=== PATIENT | male | born 1945 | race Caucasian/White ===

== ENCOUNTER 2021-03-27 18:29 | Emergency (ER) | payer MEDICARE ==
--- NOTE | 2021-03-27 18:31 | ERPHSYRPT ---
- History of Present Illness Time Seen by Provider: 03/27/21 18:31 Source: patient Physician History: This is a 75-year-old white male who has a history of hypertension, COPD, gastroesophageal reflux disease and elevated cholesterol who has been taking his medication as prescribed per his report and noticed vertigo/dizziness that began 2 to 3 days ago. Patient denies chest pain. Patient denies shortness of breath. Patient did not hit his head. There are no new to medications. 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 He has not had any fevers chills. He denies nausea vomiting diarrhea. He has no abdominal pain. Timing/Duration: day(s) (2 3 days ago) Severity: moderate Character of Deficits: other (Vertigo) Deficits: decrease ability to walk (Secondary to vertigo) Baseline/Normal Cognition: alert oriented x 3 Current Cognition: alert oriented x 3 Baseline Gait: uses cane (Patient has chronic left knee pain from arthritis. Normally he walks without assistance but in the last 2 to 3 days he has been using the cane) Associated Symptoms: other (Vertigo) Allergies/Adverse Reactions: Penicillins Allergy (Verified 03/27/21 18:49) Rash Home Medications: Atorvastatin Calcium [Lipitor 20MG Tablet] 40 mg PO DAILY 08/09/13 [History] Esomeprazole Magnesium [Nexium] 40 mg PO DAILY 08/09/13 [History] Ezetimibe 10 mg [Zetia 10 MG] 10 mg PO DAILY 08/09/13 [History] Folic Acid 1 mg PO DAILY 08/09/13 [History] Lisinopril 20 mg [Zestril 20 MG] 40 mg PO DAILY 08/09/13 [History] Meloxicam [Mobic] 7.5 mg PO DAILY 08/09/13 [History] Amlodipine Besylate 5 mg [Norvasc 5 mg] 5 mg PO DAILY 03/27/21 [History] Aspirin EC 81 mg [Ecotrin 81 mg] 81 mg PO DAILY 03/27/21 [History] Famotidine [Pepcid] 40 mg PO DAILY 03/27/21 [History] Metformin HCl 500 mg [Glucophage 500 MG] 500 mg PO DAILY 03/27/21 [History] Hx Tetanus, Diphtheria Vaccination/Date Given: Yes Hx Influenza Vaccination/Date Given: No Hx Pneumococcal Vaccination/Date Given: No Travel Risk - International Travel Have you traveled outside of the country in past 3 weeks: No - Coronavirus Screening Are you exhibiting any of the following symptoms?: No Close contact with a COVID-19 positive Pt in past 14-21 Days: No - Review of Systems Constitutional: No Symptoms Eyes: No Symptoms Ears, Nose, & Throat: No Symptoms Respiratory: No Symptoms Cardiac: No Symptoms Abdominal/Gastrointestinal: No Symptoms Genitourinary Symptoms: No Symptoms Musculoskeletal: No Symptoms Skin: No Symptoms Neurological: Dizziness Psychological: No Symptoms Endocrine: No Symptoms Hematologic/Lymphatic: No Symptoms Immunological/Allergic: No Symptoms All Other Systems: Reviewed and Negative - Past Medical History Pertinent Past Medical History: Yes Neurological History: No Pertinent History ENT History: No Pertinent History Cardiac History: High Cholesterol, Hypertension Respiratory History: COPD Endocrine Medical History: No Pertinent History Musculoskeletal History: Arthritis GI Medical History: GERD History: No Pertinent History Psycho-Social History: No Pertinent History Male Reproductive Disorders: No Pertinent History - Past Surgical History Past Surgical History: Yes Neuro Surgical History: No Pertinent History Cardiac: No Pertinent History Respiratory: No Pertinent History Gastrointestinal: No Pertinent History Genitourinary: No Pertinent History Musculoskeletal: Orthopedic Surgery Male Surgical History: No Pertinent History Other Surgical History: DISC SURGERY c-5, left foot spurs removed,right palm of hand sutured - Social History Smoking Status: Former smoker Exposure to second hand smoke: Yes Drug Use: none Patient Lives Alone: No - Nursing Vital Signs Nursing Vital Signs: Initial Vital Signs Temperature 98.2 F 03/27/21 18:37 Pulse Rate 77 03/27/21 18:37 Blood Pressure 173/88 03/27/21 18:37 O2 Sat by Pulse Oximetry 97 03/27/21 18:37 Pain Scale Pain Intensity 0 - [place] Coma Scale Best Eye Response (Carrie): (4) open spontaneously Best Verbal Response (Carrie): (5) oriented Best Motor Response (Carrie): (6) obeys commands Carrie Total: 15 - Physical Exam General Appearance: no apparent distress, alert, anxiety Eye Exam: bilateral eye: normal inspection, PERRL, EOMI, abnormal EOM Ears, Nose, Throat Exam: normal ENT inspection, moist mucous membranes, tonsillar exudate Neck Exam: normal inspection, non-tender, supple Respiratory: normal breath sounds, lungs clear, airway intact, No chest tenderness, No respiratory distress Cardiovascular: regular rate/rhythm, normal heart sounds, normal peripheral pulses Gastrointestinal: soft, normal bowel sounds, No tenderness Rectal Exam: not done Back Exam: normal inspection, normal range of motion, No CVA tenderness, No v ertebral tenderness Extremity Exam: normal inspection, normal range of motion, pelvis stable Mental Status: alert, oriented x 3, 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 When compared to EKG dated February 08, 2018 there are no acute changes.) Ordered Tests: Active Orders 24 hr Category Date Time Status EKG-ER Only STAT Care 03/27/21 19:13 Active NPO (ED) STAT Care 03/27/21 19:14 Active Pulse Oximetry (ED) STAT Care 03/27/21 19:13 Active HEAD WITHOUT CONTRAST [CT] Stat Exams 03/27/21 19:14 Taken CBC W DIFF Stat Lab 03/27/21 20:00 Completed CMP Stat Lab 03/27/21 20:00 Completed ETHYL ALCOHOL Stat Lab 03/27/21 20:00 Completed INFLUENZA A+B ARTI Stat Lab 03/27/21 20:30 Completed Lactic Acid Stat Lab 03/27/21 19:48 Completed MAGNESIUM Stat Lab 03/27/21 20:00 Completed Manual Differential NC Stat Lab 03/27/21 20:00 Completed Bradford Screen Stat Lab 03/27/21 20:00 Completed TROPONIN Q3H Lab 03/27/21 20:00 Completed TROPONIN Q3H Lab 03/27/21 22:15 Ordered TROPONIN Q3H Lab 03/28/21 01:15 Ordered TROPONIN Q3H Lab 03/28/21 04:15 Ordered TROPONIN Q3H Lab 03/28/21 07:15 Ordered UA W/RFX UR CULTURE Stat Lab 03/27/21 20:32 Completed Urine Triage Profile Stat Lab 03/27/21 20:32 Completed Medication Summary Discontinued Medications Generic Name Dose Route Start Last Admin Trade Name Julius PRN Reason Stop Dose Admin Meclizine HCl 25 mg 03/27/21 21:46 Antivert 25 Mg PO 03/27/21 21:47 STAT ONE Lab/Rad Data: Laboratory Result Diagrams 03/27/21 20:00 03/27/21 20:00 Laboratory Results 03/27/21 03/27/21 03/27/21 Range/Units 20:32 20:32 20:30 WBC (4.0-10.5) K/mm3 RBC (4.1-5.6) M/mm3 Hgb (12.5-18.0) gm/dl Hct (42-50) % MCV (78-100) fl MCH (26-32) pg MCHC (32-36) g/dl RDW (11.5-14.0) % Plt Count (150-450) K/mm3 MPV (7.5-11.0) fl Sodium (137-145) mmol/L Potassium (3.5-5.1) mmol/L Chloride (98-107) mmol/L Carbon Dioxide (22-30) mmol/L Anion Gap (5-15) MEQ/L BUN (9-20) mg/dL Creatinine (0.66-1.25) mg/dL Estimated GFR ML/MIN Glucose (74-106) mg/dL Lactic Acid (0.4-2.0) Calcium (8.4-10.2) mg/dL Magnesium (1.6-2.3) mg/dL Total Bilirubin (0.2-1.3) mg/dL AST (17-59) U/L ALT (0-50) U/L Alkaline Phosphatase (38-126) U/L Troponin I (0.000-0.034) ng/mL Serum Total Protein (6.3-8.2) g/dL Albumin (3.5-5.0) g/dL Urine Color YELLOW (YELLOW) Urine Appearance CLEAR (CLEAR) Urine pH 5.0 (5-6) Ur Specific Ingalls 1.027 (1.005-1.025) Urine Protein NEGATIVE (Negative) Urine Ketones NEGATIVE (NEGATIVE) Urine Blood NEGATIVE (0-5) Rick/ul Urine Nitrite NEGATIVE (NEGATIVE) Urine Bilirubin NEGATIVE (NEGATIVE) Urine Urobilinogen NEGATIVE (0-1) mg/dL Ur Leukocyte Esterase NEGATIVE (NEGATIVE) Urine WBC (Auto) NONE (0-5) /HPF Urine RBC (Auto) NONE (0-2) /HPF Urine Mucus (Auto) SLIGHT (NEGATIVE) /HPF Urine Culture Reflexed NO (NO) Urine Glucose NEGATIVE (NEGATIVE) mg/dL Urine Opiates Level NEGATIVE (NEGATIVE) Ur Methadone NEGATIVE (NEGATIVE) Urine Barbiturates NEGATIVE (NEGATIVE) Ur Phencyclidine (PCP) NEGATIVE (NEGATIVE) Urine Amphetamine NEGATIVE (NEGATIVE) U Benzodiazepine Level NEGATIVE (NEGATIVE) Urine Cocaine NEGATIVE (NEGATIVE) Urine Marijuana (THC) NEGATIVE (NEGATIVE) Ethyl Alcohol (0-10) mg/dL Monoscreen (Negative) Influenza Type A Ag NEGATIVE (NEGATIVE) Influenza Type B Ag NEGATIVE (NEGATIVE) 03/27/21 03/27/21 03/27/21 Range/Units 20:00 20:00 20:00 WBC (4.0-10.5) K/mm3 RBC (4.1-5.6) M/mm3 Hgb (12.5-18.0) gm/dl Hct (42-50) % MCV (78-100) fl MCH (26-32) pg MCHC (32-36) g/dl RDW (11.5-14.0) % Plt Count (150-450) K/mm3 MPV (7.5-11.0) fl Sodium 139 (137-145) mmol/L Potassium 4.2 (3.5-5.1) mmol/L Chloride 105 (98-107) mmol/L Carbon Dioxide 23 (22-30) mmol/L Anion Gap 15.0 (5-15) MEQ/L BUN 19 (9-20) mg/dL Creatinine 1.06 (0.66-1.25) mg/dL Estimated GFR > 60.0 ML/MIN Glucose 108 H (74-106) mg/dL Lactic Acid (0.4-2.0) Calcium 9.3 (8.4-10.2) mg/dL Magnesium 2.2 (1.6-2.3) mg/dL Total Bilirubin 0.50 (0.2-1.3) mg/dL AST 30 (17-59) U/L ALT 42 (0-50) U/L Alkaline Phosphatase 86 (38-126) U/L Troponin I 0.050 H* (0.000-0.034) ng/mL Serum Total Protein 7.2 (6.3-8.2) g/dL Albumin 3.8 (3.5-5.0) g/dL Urine Color (YELLOW) Urine Appearance (CLEAR) Urine pH (5-6) Ur Specific Ingalls (1.005-1.025) Urine Protein (Negative) Urine Ketones (NEGATIVE) Urine Blood (0-5) Rick/ul Urine Nitrite (NEGATIVE) Urine Bilirubin (NEGATIVE) Urine Urobilinogen (0-1) mg/dL Ur Leukocyte Esterase (NEGATIVE) Urine WBC (Auto) (0-5) /HPF Urine RBC (Auto) (0-2) /HPF Urine Mucus (Auto) (NEGATIVE) /HPF Urine Culture Reflexed (NO) Urine Glucose (NEGATIVE) mg/dL Urine Opiates Level (NEGATIVE) Ur Methadone (NEGATIVE) Urine Barbiturates (NEGATIVE) Ur Phencyclidine (PCP) (NEGATIVE) Urine Amphetamine (NEGATIVE) U Benzodiazepine Level (NEGATIVE) Urine Cocaine (NEGATIVE) Urine Marijuana (THC) (NEGATIVE) Ethyl Alcohol < 10 (0-10) mg/dL Monoscreen NEGATIVE (Negative) Influenza Type A Ag (NEGATIVE) Influenza Type B Ag (NEGATIVE) 03/27/21 03/27/21 Range/Units 20:00 19:48 WBC 8.7 (4.0-10.5) K/mm3 RBC 4.57 (4.1-5.6) M/mm3 Hgb 14.0 (12.5-18.0) gm/dl Hct 44.4 (42-50) % MCV 97.2 (78-100) fl MCH 30.6 (26-32) pg MCHC 31.5 L (32-36) g/dl RDW 13.2 (11.5-14.0) % Plt Count 457 H (150-450) K/mm3 MPV 8.9 (7.5-11.0) fl Sodium (137-145) mmol/L Potassium (3.5-5.1) mmol/L Chloride (98-107) mmol/L Carbon Dioxide (22-30) mmol/L Anion Gap (5-15) MEQ/L BUN (9-20) mg/dL Creatinine (0.66-1.25) mg/dL Estimated GFR ML/MIN Glucose (74-106) mg/dL Lactic Acid 1.3 (0.4-2.0) Calcium (8.4-10.2) mg/dL Magnesium (1.6-2.3) mg/dL Total Bilirubin (0.2-1.3) mg/dL AST (17-59) U/L ALT (0-50) U/L Alkaline Phosphatase (38-126) U/L Troponin I (0.000-0.034) ng/mL Serum Total Protein (6.3-8.2) g/dL Albumin (3.5-5.0) g/dL Urine Color (YELLOW) Urine Appearance (CLEAR) Urine pH (5-6) Ur Specific Ingalls (1.005-1.025) Urine Protein (Negative) Urine Ketones (NEGATIVE) Urine Blood (0-5) Rick/ul Urine Nitrite (NEGATIVE) Urine Bilirubin (NEGATIVE) Urine Urobilinogen (0-1) mg/dL Ur Leukocyte Esterase (NEGATIVE) Urine WBC (Auto) (0-5) /HPF Urine RBC (Auto) (0-2) /HPF Urine Mucus (Auto) (NEGATIVE) /HPF Urine Culture Reflexed (NO) Urine Glucose (NEGATIVE) mg/dL Urine Opiates Level (NEGATIVE) Ur Methadone (NEGATIVE) Urine Barbiturates (NEGATIVE) Ur Phencyclidine (PCP) (NEGATIVE) Urine Amphetamine (NEGATIVE) U Benzodiazepine Level (NEGATIVE) Urine Cocaine (NEGATIVE) Urine Marijuana (THC) (NEGATIVE) Ethyl Alcohol (0-10) mg/dL Monoscreen (Negative) Influenza Type A Ag (NEGATIVE) Influenza Type B Ag (NEGATIVE) - Progress Progress: improved Progress Note: 03/27/21 22:01 Adequate decision making: Patient is reexamined prior to his discharge to home from an AMA standpoint. Patient's CAT scan of his head without contrast shows no acute intracranial abnormality. I did tell the patient that the patient had an elevated troponin level and I explained to him what back could mean. He realizes and understands that this could be a sign of acute myocardial infarction. Patient is not having any chest pain. There are no findings of acute myocardial infarction on the EKG. Patient states he has complete resolution of his vertigo at this time. He wants to go home. He does not want any further work-up. He agrees to take an Antivert here. He also agrees rest to walk him up and down the branch. Patient states that he needs to go home because his has cancer and he needs to care for her. He does not want any further work-up. He realizes that the best option for him is to be observed in the hospital and repeat labs. However, he is refusing to be admitted or transferred to hospital facility. He understands that his condition may worsen and he could suffer irreversible damage to his heart and even . He will signed the AMA form. - Departure Departure Disposition: AMA Clinical Impression: Vertigo, Elevation of cardiac enzymes Condition: Stable Critical Care Time: Yes Critical Care Time(excluding separately billable procedures): Critical 30-74 mins Referrals: SOHAN REEVES [Primary Care Provider] - Prescriptions: Meclizine HCl 25 mg [Antivert 25 mg] 25 mg PO Q8H PRN #10 tablet PRN Reason: Dizziness
[2021-03-27 18:50] VITALS: BP 173/88; PULSE 77
[2021-03-27 20:31] LABS: Hematocrit 44.4 % (42-50); Mean Cell Volume 97.2 fl (78-100); Mean Corpuscular Hemoglobin 30.6 pg (26-32); Mean Corpuscular Hgb Concent. 31.5 g/dl (32-36); Mean Platelet Volume 8.9 fl (7.5-11.0); Platelet Count 457 K/mm3 (150-450); Red Blood Count 4.57 M/mm3 (4.1-5.6); Red Cell Distribution Width 13.2 % (11.5-14.0); White Blood Count 8.7 K/mm3 (4.0-10.5)
[2021-03-27 20:36] LABS: ALBUMIN 3.8 g/dL (3.5-5.0); ALKALINE PHOSPHATASE 86 U/L (38-126); BLOOD UREA NITROGEN 19 mg/dL (9-20); CHLORIDE 105 mmol/L (98-107); Calcium 9.3 mg/dL (8.4-10.2); Carbon Dioxide 23 mmol/L (22-30); Creatinine 1 1.06 mg/dL (0.66-1.25); EST GLOMERULAR FILTRATION RATE > 60.0 ML/MIN; ETHYL ALCOHOL < 10 mg/dL (0-10); Glucose 108 mg/dL (74-106); MAGNESIUM 2.2 mg/dL (1.6-2.3); Potassium 4.2 mmol/L (3.5-5.1); SGOT/AST 30 U/L (17-59); SGPT/ALT 42 U/L (0-50); SODIUM 139 mmol/L (137-145); Total Protein 7.2 g/dL (6.3-8.2)
[2021-03-27 20:37] LABS: Appearance CLEAR (CLEAR); Bilirubin NEGATIVE (NEGATIVE); Blood NEGATIVE Ery/ul (0-5); Glucose NEGATIVE (NEGATIVE); Ketones NEGATIVE (NEGATIVE); Leukocyte Esterase NEGATIVE (NEGATIVE); Mucus SLIGHT /HPF (NEGATIVE); Nitrite NEGATIVE (NEGATIVE); Protein,Urine Dip NEGATIVE (Negative); Specific Gravity 1.027 (1.005-1.025); Urobilinogen NEGATIVE mg/dL (0-1)
[2021-03-27 20:50] LABS: Amphetamine,Urine NEGATIVE (NEGATIVE); Barbiturate,Urine NEGATIVE (NEGATIVE); Benzodiazepine,Urine NEGATIVE (NEGATIVE); Cocaine,Urine NEGATIVE (NEGATIVE); Methadone,Urine NEGATIVE (NEGATIVE); Opiate,Urine NEGATIVE (NEGATIVE); PCP,Urine NEGATIVE (NEGATIVE); THC,Urine NEGATIVE (NEGATIVE)
[2021-03-27 21:09] LABS: INFLUENZA A NEGATIVE (NEGATIVE); INFLUENZA B NEGATIVE (NEGATIVE)
[2021-03-27] MEDS ORDERED: ANTIVERT 25 MG PO ONE (21:46)
[2021-03-27] MEDS ORDERED: ANTIVERT 25 MG ONE (22:00)
[2021-03-27 22:24] VITALS: O2SAT 95
[2021-03-28 01:21] LABS: Eosinophil 2 % (0.00-3.0); Lymphocytes 26 % (24-44); Monocyte 7 % (0.0-12.0); Neutrophils 65 % (36.-66.); Platelet Estimate NORMAL (NORMAL); Total Cells Counted 100
--- NOTE | 2021-03-28 08:45 | XRAY ---
Indication: Dizziness. Multiple contiguous axial images obtained through the head without contrast. Comparison: None Age-appropriate global atrophy. No acute intracranial hemorrhage, abnormal extra-axial fluid collection, or mass effect. Fourth ventricle is midline without hydrocephalus. Ibarra-white matter differentiation preserved. Bony calvarium intact. 2.4 cm left maxillary sinus polyp/retention cyst and minimal mucosal thickening sphenoid sinus. Remaining paranasal sinuses and mastoid air cells are clear. Impression: Left maxillary sinus polyp/retention cyst and minimal sphenoid sinus disease. Remaining CT head without contrast exam is negative.
== END 2021-03-27 22:26 | disposition home or self-care (01) ==
LOC: ED 18:29
DX: R42 Dizziness and giddiness (principal); R77.8 Other specified abnormalities of plasma proteins; I10 Essential (primary) hypertension; J44.9 Chronic obstructive pulmonary disease, unspecified; K21.9 Gastro-esophageal reflux disease without esophagitis; E78.00 Pure hypercholesterolemia, unspecified; Z79.899 Other long term (current) drug therapy
CPT/HCPCS: 36415; 70450; 80053; 80307; 81001; 83605; 83735; 84484; 85025; 86308; 87400; 93005; 94760; 99284; 99291; G0480; A9270-GY

== ENCOUNTER 2021-05-30 08:50 | Day surgery (SDC) | payer MEDICARE ==
[2012-03-09 21:30] VITALS: BP 148/79
[2021-05-30] MEDS ORDERED: BUPIVACAINE 0.5% VIAL IJ ONE (08:51)
[2021-05-30] MEDS ORDERED: Depo-Medrol 40 MG/ML IM ONE (08:51)
[2021-05-30] MEDS ORDERED: DIPRIVAN 200 MG/20 ML IV ONE (09:52)
[2021-05-30] MEDS ORDERED: Lactated Ringers 1,000 ML IV ONE (10:14)
--- NOTE | 2021-05-30 10:43 | XRAY ---
Indication: Bilateral SI joint injection. Intraoperative fluoroscopy provided for 16 seconds. 3 digital spot image submitted for interpretation demonstrate posterior needle tip projecting over the inferior left and right SI joint. Correlate with intraoperative findings/report.
--- NOTE | 2021-05-30 12:33 | XRAY ---
16 seconds fluoroscopy time in surgery for injections of both SI joints.
== END 2021-05-30 09:58 | disposition home or self-care (01) ==
LOC: SDC-PAIN 08:50
PROVIDERS: ATTEND Psychiatry & Neurology Pain Medicine
DX: M46.1 Sacroiliitis, not elsewhere classified (principal); E11.9 Type 2 diabetes mellitus without complications; Z79.899 Other long term (current) drug therapy
CPT/HCPCS: 27096; 72202; 77002; 82947; G0260; 99100; J1030; J2704

== ENCOUNTER 2021-07-02 08:01 | Day surgery (SDC) | payer MEDICARE ==
[2012-03-09 21:30] VITALS: BP 148/79
[2021-07-02] MEDS ORDERED: Depo-Medrol 40 MG/ML IM ONE (08:02)
[2021-07-02] MEDS ORDERED: BUPIVACAINE 0.5% VIAL IJ ONE (08:02)
[2021-07-02] MEDS ORDERED: Lactated Ringers 1,000 ML IV ONE (08:50)
[2021-07-02] MEDS ORDERED: DIPRIVAN 200 MG/20 ML IV ONE (09:11)
--- NOTE | 2021-07-02 10:34 | XRAY ---
Indication: Left shoulder and subacromial injections. Intraoperative fluoroscopy provided for 19 seconds. 2 digital spot images submitted for interpretation demonstrates needle tip projecting over the left glenohumeral joint superiorly. Second needle tip subacromial. Small amount of contrast injected for both needle tip placement. Correlate with intraoperative findings/report.
--- NOTE | 2021-07-02 10:34 | XRAY ---
Indication: Right shoulder and subacromial injections. Intraoperative fluoroscopy provided for 18 seconds. 2 digital spot images submitted for interpretation demonstrates needle tip projecting over the right glenohumeral joint superiorly. Second needle tip subacromial. Small amount of contrast injected for both needle tip placement. Correlate with intraoperative findings/report.
--- NOTE | 2021-07-02 10:42 | XRAY ---
18 seconds of fluoroscopy was used in surgery for a right shoulder intra-articular and subacromial bursa injection.
--- NOTE | 2021-07-02 10:53 | XRAY ---
19 seconds of fluoroscopy was used in surgery for a left shoulder intra-articular and subacromial bursa injection.
== END 2021-07-02 09:44 | disposition home or self-care (01) ==
LOC: SDC-PAIN 08:01
PROVIDERS: ATTEND Psychiatry & Neurology Pain Medicine
DX: M19.012 Primary osteoarthritis, left shoulder (principal); M19.011 Primary osteoarthritis, right shoulder; M75.52 Bursitis of left shoulder; M75.51 Bursitis of right shoulder; E11.9 Type 2 diabetes mellitus without complications; Z79.899 Other long term (current) drug therapy
CPT/HCPCS: 20610; 73030; 77002; 82947; J1030; J2704; Q9966

== ENCOUNTER 2021-10-15 12:13 | Day surgery (SDC) | payer MEDICARE ==
[2012-03-09 21:30] VITALS: BP 148/79
[2021-10-15] MEDS ORDERED: Decadron 4 MG INJ IV ONE (12:14)
[2021-10-15] MEDS ORDERED: Xylocaine 1% Vial 30 ML PF IJ ONE (12:14)
[2021-10-15] MEDS ORDERED: Sodium Chloride 0.9(Preservative Free) 10 ML IJ ONE (12:14)
--- NOTE | 2021-10-15 16:48 | XRAY ---
Indication: Cervical DARIN. Intraoperative fluoroscopy provided for 1 minutes 36 seconds. 2 digital spot images submitted for interpretation demonstrates midline posterior needle tip projecting just posterior to cervical thoracic junction. Small amount of contrast injected for needle tip placement. Correlate with intraoperative findings/report.
--- NOTE | 2021-10-15 17:01 | XRAY ---
1 minute and 36 seconds fluoroscopy time in service for cervical DARIN.
== END 2021-10-15 15:40 | disposition home or self-care (01) ==
LOC: SDC-PAIN 12:13
PROVIDERS: ATTEND Psychiatry & Neurology Pain Medicine
DX: M54.12 Radiculopathy, cervical region (principal); E11.9 Type 2 diabetes mellitus without complications; Z79.899 Other long term (current) drug therapy
CPT/HCPCS: 62321; 72040; 77003; 82947; J1100; J2001; Q9966

== ENCOUNTER 2022-05-20 09:08 | Day surgery (SDC) | payer MEDICARE ==
[2012-03-09 21:30] VITALS: BP 148/79
[2022-05-20] MEDS ORDERED: BUPIVACAINE 0.5% VIAL IJ ONE (09:09)
[2022-05-20] MEDS ORDERED: Depo-Medrol 40 MG/ML IM ONE (09:09)
[2022-05-20] MEDS ORDERED: DIPRIVAN 200 MG/20 ML IV ONE (10:41)
--- NOTE | 2022-05-20 12:33 | XRAY ---
Indication: Right shoulder and subacromial bursa injection Intraoperative fluoroscopy provided for 22 seconds. Single digital spot images submitted for interpretation demonstrates needle tip projecting over the right glenohumeral joint superiorly. Small amount of contrast injected for needle tip placement. Correlate with intraoperative findings/report.
--- NOTE | 2022-05-20 12:35 | XRAY ---
Indication: Left shoulder and subacromial bursa injection Intraoperative fluoroscopy provided for 16 seconds. 2 digital spot images submitted for interpretation demonstrates needle tip projecting over the left glenohumeral joint superiorly. Second needle tip subacromial. Small amount of contrast injected for both needle tip placement. Correlate with intraoperative findings/report.
--- NOTE | 2022-05-20 13:35 | XRAY ---
22 seconds fluoroscopy time in surgery for injections of the inra-articular joint and subacromial joint spaces of the right shoulder.
--- NOTE | 2022-05-20 13:36 | XRAY ---
16 seconds fluoroscopy time in surgery for injections of the intra-articular joint and subacromial joint spaces of the left shoulder.
== END 2022-05-20 11:15 | disposition home or self-care (01) ==
LOC: SDC-PAIN 09:08
PROVIDERS: ATTEND Psychiatry & Neurology Pain Medicine
DX: M19.012 Primary osteoarthritis, left shoulder (principal); M19.011 Primary osteoarthritis, right shoulder; M75.52 Bursitis of left shoulder; M75.51 Bursitis of right shoulder; E11.9 Type 2 diabetes mellitus without complications; Z79.899 Other long term (current) drug therapy
CPT/HCPCS: 20610; 73030; 77002; 82947; J1030; J2704; Q9966

== ENCOUNTER 2022-11-11 15:27 | Day surgery (SDC) | payer MEDICARE ==
[2012-03-09 21:30] VITALS: BP 148/79
[2022-11-11] MEDS ORDERED: Depo-Medrol 40 MG/ML IM ONE (15:28)
[2022-11-11] MEDS ORDERED: BUPIVACAINE 0.5% VIAL IJ ONE (15:28)
[2022-11-11] MEDS ORDERED: LIDOCAINE HCL 1% 50 MG/5 ML VL PF IJ ONE (15:28)
--- NOTE | 2022-11-11 18:48 | XRAY ---
Indication: Left knee injection. Intraoperative fluoroscopy provided for 7 seconds. Single digital spot image submitted for interpretation demonstrates needle tip projecting over the left femur intercondylar notch. Small amount of contrast injected for needle tip placement. Correlate with intraoperative findings/report.
--- NOTE | 2022-11-11 18:48 | XRAY ---
7 seconds of fluoroscopy was used in surgery for a left knee intra-articular injection.
== END 2022-11-11 18:25 | disposition home or self-care (01) ==
LOC: SDC-PAIN 15:27
PROVIDERS: ATTEND Psychiatry & Neurology Pain Medicine
DX: M17.12 Unilateral primary osteoarthritis, left knee (principal); E11.9 Type 2 diabetes mellitus without complications; Z79.899 Other long term (current) drug therapy
CPT/HCPCS: 20610; 73560; 77002; 82947; J1030; J2001; Q9966

== ENCOUNTER 2023-08-11 15:26 | Day surgery (SDC) | payer MEDICARE ==
[2012-03-09 21:30] VITALS: BP 148/79
[2023-08-11] MEDS ORDERED: BUPIVACAINE 0.5% VIAL IJ ONE (15:27)
[2023-08-11] MEDS ORDERED: XYLOCAINE-MPF 1% 5ML SDV IJ ONE (15:27)
[2023-08-11] MEDS ORDERED: Depo-Medrol 40 MG/ML IM ONE (15:27)
--- NOTE | 2023-08-11 20:26 | XRAY ---
Indication: Left knee injection Intraoperative fluoroscopy provided for 6 seconds. Single digital spot image submitted for interpretation demonstrates needle tip projecting over left femur intercondylar notch. Small amount of contrast injected for needle tip placement. Correlate with intraoperative findings/report.
--- NOTE | 2023-08-12 10:25 | XRAY ---
6 seconds of fluoroscopy was used in surgery for a left intra-articular knee injection.
== END 2023-08-11 19:10 | disposition home or self-care (01) ==
LOC: SDC-PAIN 15:26
PROVIDERS: ATTEND Psychiatry & Neurology Pain Medicine
DX: M17.12 Unilateral primary osteoarthritis, left knee (principal); E11.9 Type 2 diabetes mellitus without complications
CPT/HCPCS: 20610; 73560; 77002; 82947; J1030; Q9966

== ENCOUNTER 2023-10-27 09:46 | Day surgery (SDC) | payer MEDICARE ==
[2012-03-09 21:30] VITALS: BP 148/79
[2023-10-27] MEDS ORDERED: LIDOCAINE HCL 2% 100 MG/5 ML IJ ONE (09:47)
[2023-10-27] MEDS ORDERED: Lactated Ringers 1,000 ML IV ONE (11:12)
[2023-10-27] MEDS ORDERED: DIPRIVAN 200 MG/20 ML IV ONE (11:20)
--- NOTE | 2023-10-27 11:47 | XRAY ---
Indication: Bilateral L4-S1 MBB. Intraoperative fluoroscopy provided for 10 seconds. Single digital spot image submitted for interpretation demonstrates posterior needle tips projecting over expected left and right L4-S1 nerve roots. Correlate with intraoperative findings/report.
--- NOTE | 2023-10-27 12:20 | XRAY ---
10 seconds of fluoroscopy was used in surgery for a bilateral L4-S1 MBB.
== END 2023-10-27 11:50 | disposition home or self-care (01) ==
LOC: SDC-PAIN 09:46
PROVIDERS: ATTEND Psychiatry & Neurology Pain Medicine
DX: M47.816 Spondylosis without myelopathy or radiculopathy, lumbar region (principal); E11.9 Type 2 diabetes mellitus without complications
CPT/HCPCS: 64493; 64494; 72020; 77002; 82947; J2704

== ENCOUNTER 2023-12-01 08:36 | Day surgery (SDC) | payer MEDICARE ==
[2012-03-09 21:30] VITALS: BP 148/79
[2023-12-01] MEDS ORDERED: BUPIVACAINE 0.5% VIAL IJ ONE (08:37)
[2023-12-01] MEDS ORDERED: DIPRIVAN 200 MG/20 ML IV ONE (10:51)
--- NOTE | 2023-12-01 12:29 | XRAY ---
Indication: Bilateral L4-S1 MBB. Intraoperative fluoroscopy provided for 6 seconds. Single digital spot image submitted for interpretation demonstrates posterior needle tips projecting over the expected left and right L4-S1 nerve roots. Correlate with interoperative findings/report.
--- NOTE | 2023-12-01 12:35 | XRAY ---
6 seconds of fluoroscopy was used in surgery for a bilateral L4-S1 MBB.
[2023-12-01] MEDS ORDERED: Lactated Ringers 1,000 ML IV ONE (13:12)
== END 2023-12-01 10:59 | disposition home or self-care (01) ==
LOC: SDC-PAIN 08:36
PROVIDERS: ATTEND Psychiatry & Neurology Pain Medicine
DX: M47.816 Spondylosis without myelopathy or radiculopathy, lumbar region (principal); E11.9 Type 2 diabetes mellitus without complications
CPT/HCPCS: 64493; 64494; 72020; 77002; 82947; J2704

== ENCOUNTER 2023-12-29 07:14 | Day surgery (SDC) | payer MEDICARE ==
[2012-03-09 21:30] VITALS: BP 148/79
[2023-12-29] MEDS ORDERED: DIPRIVAN 200 MG/20 ML IV ONE (08:46)
--- NOTE | 2023-12-29 10:14 | XRAY ---
Indication: Right L4-S1 RFA. Intraoperative fluoroscopy provided for 28 seconds. 4 digital spot image submitted for interpretation demonstrates posterior needle tips projecting over the expected right L4-S1 nerve roots. Correlate with intraoperative findings/report.
--- NOTE | 2023-12-29 10:50 | XRAY ---
28 seconds of fluoroscopy was used in surgery for a right L4-S1 RFA.
[2023-12-29] MEDS ORDERED: Lactated Ringers 1,000 ML IV ONE (15:00)
== END 2023-12-29 09:20 | disposition home or self-care (01) ==
LOC: SDC-PAIN 07:14
PROVIDERS: ATTEND Psychiatry & Neurology Pain Medicine
DX: M47.816 Spondylosis without myelopathy or radiculopathy, lumbar region (principal); E11.9 Type 2 diabetes mellitus without complications
CPT/HCPCS: 64635; 64636; 72100; 77002; 82947; 99100; J2704

== ENCOUNTER 2024-01-05 07:04 | Day surgery (SDC) | payer MEDICARE ==
[2012-03-09 21:30] VITALS: BP 148/79
[2024-01-05] MEDS ORDERED: XYLOCAINE-MPF 1% 5ML SDV IJ ONE (07:05)
[2024-01-05] MEDS ORDERED: Depo-Medrol 40 MG/ML IM ONE (07:05)
[2024-01-05] MEDS ORDERED: BUPIVACAINE 0.5% VIAL IJ ONE (07:05)
[2024-01-05] MEDS ORDERED: DIPRIVAN 200 MG/20 ML IV ONE (09:31)
--- NOTE | 2024-01-05 11:03 | XRAY ---
20 seconds of fluoroscopy was used in surgery for a left L4-S1 RFA.
--- NOTE | 2024-01-05 11:04 | XRAY ---
Indication: Left L4-S1 RFA. Intraoperative fluoroscopy provided for 20 seconds. 4 digital spot image submitted for interpretation demonstrates posterior needle tips project over the expected left L4-S1 nerve roots. Correlate with intraoperative findings/report.
[2024-01-05] MEDS ORDERED: Lactated Ringers 1,000 ML IV ONE (12:11)
== END 2024-01-05 10:01 | disposition home or self-care (01) ==
LOC: SDC-PAIN 07:04
PROVIDERS: ATTEND Psychiatry & Neurology Pain Medicine
DX: M47.816 Spondylosis without myelopathy or radiculopathy, lumbar region (principal); E11.9 Type 2 diabetes mellitus without complications
CPT/HCPCS: 64635; 64636; 72100; 77002; 82947; 99100; J1010; J2704